=== PATIENT | female | born 1985 | race Caucasian/White ===

== ENCOUNTER 2019-09-24 13:29 | Emergency (ER) | payer OTHER ==
[~2019-09-24] VITALS: Ht 170.2 cm; Wt 59.9 kg
[2019-09-24] MEDS ORDERED: KETOROLAC TROMETHAMINE 30 MG INJ ONE (16:39)
[2019-09-24] MEDS ORDERED: KETOROLAC TROMETHAMINE 30 MG INJ IM ONE (16:45)
--- NOTE | 2019-09-24 17:03 | NUR ---
Patient discharged to home in stable conditon. Written and verbal after care instructions given. Patient verbalizes understanding of instructions.
== END 2019-09-24 17:04 | disposition home or self-care (01) ==
LOC: ER 13:29
DX: S50.11XA Contusion of right forearm, initial encounter (principal); X58.XXXA Exposure to other specified factors, initial encounter; Y93.89 Activity, other specified; Y92.813 Airplane as the place of occurrence of the external cause; Y99.8 Other external cause status
CPT/HCPCS: 29125; 73090; 93971; 96372; 99284; J1885